=== PATIENT | female | born 1970 | race Caucasian/White ===

== ENCOUNTER 2019-11-23 08:34 | Outpatient (CLI) | payer BC ==
--- NOTE | 2019-11-23 11:06 | MRI ---
MRI CERVICAL SPINE WITHOUT CONTRAST: Date: 11/23/2019 INDICATION: Cervical radiculopathy. FINDINGS: Cervical vertebral maintain height and alignment. Degenerative disc changes are seen at all levels. L oss of disc space most pronounced at C4-5, C5-6, and C6-7. Degenerative osteophytes are seen from the cervical vertebra. Posterior spondylosis is noted as described below. C2-3: Minimal spondylosis. The anterior subarachnoid space is preserved and there is no central neha l or foraminal stenosis. C3-4: Mild spondylosis. Minimal effacement of the anterior subarachnoid space. No central canal or f oraminal stenosis. C4-5: Disc bulge and spondylosis abuts the anterior cord. Mild right foraminal narrowing due to face t and uncinate hypertrophy. C5-6: Disc bulge and spondylosis efface the anterior subarachnoid space most prominent centrally. Mi nimal foraminal encroachment due to uncinate hypertrophy. C6-7: Disc bulge and spondylosis efface the anterior subarachnoid space. There is bilateral foramina l encroachment due to uncinate hypertrophy more prominent on the left. Cervical cord signal appears normally maintained. Nerve root sleeve cysts are seen bilaterally at the C7-T1 level. IMPRESSION: Spondylosis is seen at C4-5, C5-6, and C6-7, with findings as described above. POS: AH
== END 2019-11-23 08:35 | disposition home or self-care (01) ==
LOC: TBSIIMAG 08:34
PROVIDERS: ATTEND Neurological Surgery
DX: M47.22 Other spondylosis with radiculopathy, cervical region (principal)
CPT/HCPCS: 72141

== ENCOUNTER 2020-03-02 07:26 | Outpatient (CLI) | payer BC, OTHER ==
[2020-03-02 14:29] LABS: Prothrombin Time 13.1 sec (12.0-14.7)
[2020-03-02 14:33] LABS: #Eosinphils 0.1 thou/uL (0.0-0.7); #Lymphocytes 2.2 thou/uL (1.20-3.40); #Monocytes 0.6 thou/uL (0.11-0.59); #Neutrophils 4.6 thou/uL (1.40-6.50); %Basophils 0.6 % (0.0-1.0); %Lymphocytes 29.2 % (21.0-51.0); %Monocytes 7.4 % (0.0-10.0); %Neutrophils 61.8 % (42.0-75.0); Hemoglobin 15.2 g/dL (12.0-16.0); Mean Corpuscular HGB CONC 34.5 g/dL (32.0-36.0); Mean Corpuscular Hemoglobin 32.1 pg (27.0-31.0); Mean Platelet Volume 8.1 fL (7.4-10.4); Platelet Count 285 thou/uL (130-400); RBC Distribution Width 11.3 % (11.5-14.5); Red Blood Cell (RBC) Count 4.74 mill/uL (4.20-5.40); White Blood Cell (WBC) Count 7.4 thou/uL (4.8-10.8)
[2020-03-02 14:44] LABS: Bilirubin Negative (Negative); Blood, Urine Trace (Negative); Glucose, Urine (Dipstick) Negative (Negative); Ketone, Urine Negative (Negative); Leukocyte Negative (Negative); Nitrite Negative (Negative); Protein, Urine (Dipstick) Negative (Neg-Trace); Urobilinogen 0.2 mg/dL (Less than 2); pH, Urine 5.5 (5.0-9.0)
[2020-03-02 14:54] LABS: Anion Gap 16 mmol/L (10-20); BUN (Urea Nitrogen) 10 mg/dL (7.0-18.7); Calc. Creatinine Clearance 0 mL/min (70-130); Calcium 9.8 mg/dL (7.8-10.44); Carbon Dioxide 26 mmol/L (22-29); Chloride 104 mmol/L (98-107); Estimated GFR-MDRD 86; Glucose 90 mg/dL (70-105); Potassium 4.6 mmol/L (3.5-5.1); Sodium 141 mmol/L (136-145)
[2020-03-02 15:01] LABS: Clarity Turbid (Clear)
[2020-03-02 15:02] LABS: Specific Gravity, Urine 1.026 (1.002-1.036)
[2020-03-02 15:03] LABS: Bacteria/HPF 1+ HPF (None Seen); RBC/HPF None Seen HPF (0-3); WBC/HPF None Seen HPF (0-3)
[2020-03-03 12:22] LABS: SARS-CoV-2 MS2 Positive; SARS-CoV-2 N Gene Negative; SARS-CoV-2 S Gene Negative; SARS-CoV-2 by NAA Not Detected (NotDetected); SARS-CoV-2 orf1ab Negative
--- NOTE | 2020-03-05 16:03 | EKG ---
Test Reason : PREOP Blood Pressure : / mmHG Vent. Rate : 060 BPM Atrial Rate : 060 BPM P-R Int : 134 ms QRS Dur : 082 ms QT Int : 422 ms P-R-T Axes : 079 053 069 degrees QTc Int : 422 ms Normal sinus rhythm Normal ECG No previous ECGs available Confirmed by Paul PAREDES ([id number]) on 03/05/2020 4:02:55 PM Referred By: Vishnu Sherwood Confirmed By:Paul PAREDES
== END 2020-03-02 07:27 | disposition home or self-care (01) ==
LOC: LABBT 07:26
PROVIDERS: ATTEND Orthopaedic Surgery
DX: Z01.818 Encounter for other preprocedural examination (principal); Z20.828 Contact with and (suspected) exposure to other viral communicable diseases; M17.12 Unilateral primary osteoarthritis, left knee
CPT/HCPCS: 80048; 81001; 85025; 85610; 87081; 87635; 93005; 93010; U0003

== ENCOUNTER 2020-03-06 07:35 | Day surgery (SDC) | payer BC ==
[2020-03-06] MEDS ORDERED: Tranexamic Acid 1,000 MG/10 ML VIAL ONE ×2 (08:16→14:00)
[2020-03-06] MEDS ORDERED: Clindamycin/D5W 600 mg/50 ml Premix Bag ONE (08:17)
[2020-03-06] MEDS ORDERED: Sodium Chloride 0.9% 100 ML ONE (08:17)
[2020-03-06] MEDS ORDERED: Vancomycin 1 GM/200 ML BAG ONE (08:17)
[2020-03-06] MEDS ORDERED: Midazolam HCl 2 mg/2 ml Vial ONE (08:20)
[2020-03-06] MEDS ORDERED: Fentanyl 100 MCG/2 ML VIAL ONE ×3 (08:20→13:25)
[2020-03-06] MEDS ORDERED: Scopolamine 1.5 mg/72 hour Patch ONE (08:39)
[2020-03-06] MEDS ORDERED: Ropivacaine HCl/PF 250 ML in Premix Bag 1 BAG NERVE BLCK SCH (09:08)
[2020-03-06] MEDS ORDERED: Ondansetron PF 4 MG/2 ML Vial IVP PRN (09:08)
[2020-03-06] MEDS ORDERED: HYDROcodone/Acetaminophen 10/325 mg Tablet PO PRN (09:08)
[2020-03-06] MEDS ORDERED: Promethazine HCl 25 MG/ML VIAL IM PRN (09:08)
[2020-03-06] MEDS ORDERED: traMADol HCl 50 MG TAB PO PRN (09:08)
[2020-03-06] MEDS ORDERED: Zolpidem Tartrate 5 MG TAB PO PRN (09:08)
[2020-03-06] MEDS ORDERED: Acetaminophen 325 MG TAB PO PRN (09:08)
[2020-03-06] MEDS ORDERED: Fentanyl 100 MCG/2 ML VIAL IV PRN (09:08)
[2020-03-06] MEDS ORDERED: Ondansetron PF 4 MG/2 ML Vial ONE (09:18)
[2020-03-06] MEDS ORDERED: EPHEDRINE 25 MG/5 ML SYRINGE ONE (09:18)
[2020-03-06] MEDS ORDERED: Lidocaine 1% PF 5 ML VIAL ONE (09:18)
[2020-03-06] MEDS ORDERED: Ketorolac Tromethamine 30 MG/ML VIAL ONE ×2 (09:18→14:24)
[2020-03-06] MEDS ORDERED: PROPOFOL 200 MG/20 ML VIAL ONE (09:18)
[2020-03-06] MEDS ORDERED: Ropivacaine 0.2% HCl/PF (40 MG/20 ML VIAL) ONE (09:18)
[2020-03-06] MEDS ORDERED: Bupivacaine HCl 0.5%/Epinephrine 1:200,000/PF 30 ml Vial ONE (09:18)
[2020-03-06] MEDS ORDERED: Bupivacaine PF 0.5% 30 ML VIAL ONE (09:21)
[2020-03-06 17:08] VITALS: BMI 26.6
[2020-03-06] MEDS: Ketorolac Tromethamine 30 MG/ML VIAL IVP SCH ×2 (17:15→18:25)
[2020-03-06] MEDS: traMADol HCl 50 MG TAB PO PRN (21:11)
--- NOTE | 2020-03-06 22:12 | OP ---
DATE OF PROCEDURE: 03/06/2020 PREOPERATIVE DIAGNOSIS: Post-traumatic arthritis, left knee. POSTOPERATIVE DIAGNOSIS: Post-traumatic arthritis, left knee. PROCEDURES PERFORMED: 1. Left total knee replacement using Nguyen pinless navigation. 2. Hardware removal, left knee. OBSTETRICS GYN: Roverto Mcdonald PA-C ESTIMATED BLOOD LOSS: Minimal. COMPLICATIONS: None. ANESTHESIA: The patient had a general anesthetic as well as a preoperative block. IMPLANTS: Nguyen Triathlon total knee system; the femur was a size 5 cruciate-retaining femur. The tibia was a size 4 primary tibial baseplate. Our polyethylene was a 4 x 11 CS X3 tibial poly and the patella was asymmetric 27 x 8 X3 patella. DISPOSITION: She went to recovery room in stable condition. We also did remove one metal interference screw from the tibia. INDICATIONS: This is a 50-year-old female, who has had 4 previous ACL reconstructions and now has significant posttraumatic arthritis with limitation of motion and poor function. At this time, she wished to have her knee replaced. PROCEDURE IN DETAIL: After all appropriate consent forms were explained and signed, the patient was taken back to the operating room and at this time was given general anesthetic. Once the level of anesthesia was appropriate, a well-padded tourniquet was placed on the left leg, and the leg was then prepped and draped in standard surgical fashion. The limb was exsanguinated and tourniquet taken up to 300 mmHg. Midline incision was made with a 10 blade down through the skin and subcutaneous tissue. Bovie electrocautery was used to coagulate any brisk venous bleeding. A new blade was used to make a medial parapatellar arthrotomy. Small subperiosteal release was performed medially and excess fat pad was removed. The knee was flexed up to gain access to the femur. The femur was navigated and distal femoral resection was made. Epicondylar access was used to align our sizing jig and this was pinned in place. We sized our femur to be a size 5 cruciate-retaining femur. 4:1 cutting block was applied and pinned. Anterior and posterior chamfer cuts were then made. We navigated out our proximal tibia and made our proximal tibial resection. Spreaders were used to remove any posterior osteophytes off the back of the femur as well as remaining meniscal tissue. A long alignment robby was then used to achieve correct rotation of our tibial baseplate and the tibia was a size 4 primary tibial baseplate was chosen. This was pinned in place. We trialed the polyethylene and a 4 x 11 CS X3 tibial polyethylene gave us full extension and good stability throughout range of motion. Two towel clips and a saw were used to cut our patella. Three lug nuts were drilled and asymmetric 27 x 8 X3 patella was trialed which sat nicely in the trochlear groove. We then drilled our femur and punched our tibia. All components were removed. The knee was thoroughly irrigated and dried. Cement was mixed into the cement gun on the back table. Components were then placed. The knee was held out in full extension until the cement had dried. All excess bone cement was removed. Multiple #2 Vicryl stitches as well as a Quill were used to close our extensor mechanism. 0 Quill followed by a running Monoderm was then used to close the skin. Surgicel glue was then used on the skin. Once this had dried, soft tissue dressing was applied to the limb, tourniquet was let down, and the toes pinked up nicely. The patient was then awakened and taken to the recovery room in stable condition. All counts were correct at the end of the case. The patient did receive preoperative IV antibiotics. The patient was injected with Marcaine for postoperative pain relief. The triage assistant surgeon was present throughout the procedure, including the approach, placement of the implants and closure. We were unable to place the tibial component punch without removing the metal interference screw inside the tibial bone and at this time, the bone was excavated and was removed atraumatically without any issues. After this was done, we were able to implant the remaining implants without any complication. Job ID: [id number]
[2020-03-07] MEDS: Ketorolac Tromethamine 30 MG/ML VIAL IVP SCH ×5 (00:32→23:25)
[2020-03-07] MEDS: traMADol HCl 50 MG TAB PO PRN ×2 (03:53→12:03)
[2020-03-07] MEDS ORDERED: Acetaminophen 325 MG TAB PO PRN (04:56)
[2020-03-07] MEDS ORDERED: Zolpidem Tartrate 5 MG TAB PO PRN (04:56)
[2020-03-07] MEDS ORDERED: Ondansetron PF 4 MG/2 ML Vial IVP PRN (04:56)
[2020-03-07] MEDS ORDERED: diphenhydrAMINE 25 MG CAP PO PRN (04:56)
[2020-03-07] MEDS ORDERED: Promethazine HCl 25 MG/ML VIAL IM PRN (04:56)
[2020-03-07] MEDS: Clindamycin/D5W 900 MG in Premix Bag 1 BAG IVPB SCH ×2 (05:41→11:52)
[2020-03-07] MEDS ORDERED: Vancomycin 1 GM in Premix Bag 1 BAG IVPB SCH (06:00)
[2020-03-07] MEDS: Sodium Chloride 0.9% 1,000 ML IV SCH ×2 (07:18→15:00)
[2020-03-07] MEDS: Aspirin Chewable 81 MG TAB PO SCH (08:47)
[2020-03-07] MEDS: Aspirin 81 mg Enteric Coated Tablet PO SCH ×2 (08:47→20:20)
[2020-03-07] MEDS: Senokot S 8.6-50 MG TAB PO SCH ×2 (08:47→20:20)
[2020-03-07] MEDS: Multivitamin W/ Minerals 1 TAB PO SCH (08:48)
[2020-03-07] MEDS: Ferrous Gluconate 324 MG TAB PO SCH ×2 (08:48→20:20)
[2020-03-07] MEDS ORDERED: Sodium Chloride 0.9% 500 ML IV SCH (10:15)
[2020-03-07] MEDS ORDERED: HYDROcodone/Acetaminophen 5/325 mg Tablet PO SCH (10:15)
[2020-03-07 10:48] LABS: Hemoglobin 11.5 g/dL (12.0-16.0); Mean Corpuscular HGB CONC 34.2 g/dL (32.0-36.0); Mean Corpuscular Hemoglobin 32.5 pg (27.0-31.0); Mean Corpuscular Volume 94.9 fL (78.0-98.0); Mean Platelet Volume 7.5 fL (7.4-10.4); Platelet Count 225 thou/uL (130-400); Red Blood Cell (RBC) Count 3.54 mill/uL (4.20-5.40); White Blood Cell (WBC) Count 9.6 thou/uL (4.8-10.8)
[2020-03-07 10:54] LABS: Anion Gap 8 mmol/L (10-20); BUN (Urea Nitrogen) 4 mg/dL (7.0-18.7); Calc. Creatinine Clearance 135 mL/min (70-130); Calcium 7.6 mg/dL (7.8-10.44); Carbon Dioxide 25 mmol/L (22-29); Chloride 103 mmol/L (98-107); Estimated GFR-MDRD Greater than 90; Glucose 113 mg/dL (70-105); Potassium 3.2 mmol/L (3.5-5.1); Sodium 133 mmol/L (136-145)
[2020-03-07] MEDS ORDERED: Potassium Chloride 20 MEQ TAB PO SCH (13:15)
[2020-03-07] MEDS: HYDROcodone/Acetaminophen 10/325 mg Tablet PO PRN (23:26)
[2020-03-08] MEDS: Sodium Chloride 0.9% 1,000 ML IV SCH ×2 (01:15→10:09)
[2020-03-08] MEDS: Ketorolac Tromethamine 30 MG/ML VIAL IVP SCH (05:35)
[2020-03-08 08:12] LABS: Hemoglobin 11.4 g/dL (12.0-16.0); Mean Corpuscular HGB CONC 32.9 g/dL (32.0-36.0); Mean Corpuscular Hemoglobin 31.3 pg (27.0-31.0); Mean Corpuscular Volume 95.2 fL (78.0-98.0); Platelet Count 243 thou/uL (130-400); RBC Distribution Width 11.1 % (11.5-14.5); Red Blood Cell (RBC) Count 3.64 mill/uL (4.20-5.40); White Blood Cell (WBC) Count 8.9 thou/uL (4.8-10.8)
[2020-03-08] MEDS ORDERED: Ferrous Gluconate 324 MG TAB PO SCH (09:00)
[2020-03-08] MEDS: Aspirin 81 mg Enteric Coated Tablet PO SCH (10:09)
[2020-03-08] MEDS: Aspirin Chewable 81 MG TAB PO SCH (10:09)
[2020-03-08] MEDS: Multivitamin W/ Minerals 1 TAB PO SCH (10:09)
[2020-03-08] MEDS: Ferrous Gluconate 324 MG TAB PO SCH (10:09)
[2020-03-08] MEDS: Senokot S 8.6-50 MG TAB PO SCH (10:09)
[2020-03-08] MEDS: HYDROcodone/Acetaminophen 10/325 mg Tablet PO PRN ×2 (10:09→14:33)
--- NOTE | 2020-03-08 12:05 | PRG ---
DATE OF SERVICE: 03/08/2020 SUBJECTIVE: Katherine is a 50-year-old female postop day #1 from a left total knee arthroplasty. She is doing relatively well, but she has had some nausea and some hypotension which seems to be symptomatic. Pain is a little out of control due to the fact that she has not received any pain medication, because of the hypotension. OBJECTIVE: VITAL SIGNS: Temperature 98.2, pulse 80, respiratory rate 14 and nonlabored, O2 saturation is 100% on room air, blood pressure is 116/71. She has had multiple checks that demonstrate systolics in the 80s and 90s, but no tachycardia accompanies this. GENERAL: She is alert and oriented to person, place, time, and situation. A little subdued, but arousable, appropriate response with examiner converses, but somnolent. EXTREMITIES: Incision is clean. No erythema. No strike through. She is neurovascularly intact in the left lower extremity. LABORATORY DATA: Hemoglobin and hematocrit 11.5 and 33.6. IMPRESSION: A 50-year-old female postoperative day #1, left total knee arthroplasty, doing well, but with postoperative nausea and some malaise, but otherwise stable. PLAN: Continue current care. We will see how she is doing overnight and give consideration to discharge tomorrow, if she is feeling better and independent. Job ID: [id number]
[2020-03-08 15:50] VITALS: BP 123/69; TEMP 98.3
== END 2020-03-08 13:48 | disposition home or self-care (01) ==
LOC: SDC 07:35 → SURG B 15:33 → SDC 03-08 13:48
PROVIDERS: ATTEND Orthopaedic Surgery
PROC: 0SRD0JZ Replacement of Left Knee Joint with Synthetic Substitute, Open Approach (ICD-10-PCS; principal; 2020-03-06)
PROC: 8E0YXBZ Computer Assisted Procedure of Lower Extremity (ICD-10-PCS; principal; 2020-03-06)
DX: M17.32 Unilateral post-traumatic osteoarthritis, left knee (principal); G47.30 Sleep apnea, unspecified; Z79.899 Other long term (current) drug therapy; Z88.0 Allergy status to penicillin
CPT/HCPCS: 36415; 80048; 85027; C1713; C1776; J0670; J1885; J2250; J2405; J2704; J2795; J3010; J3370; J3490; S0020